=== PATIENT | male | born 1965 | race Caucasian/White ===

== ENCOUNTER 2020-09-28 06:21 | Emergency (ER) | payer BC ==
[2020-09-28 06:35] VITALS: TEMP 101.7
[2020-09-28] MEDS ORDERED: SODIUM CHLORIDE 0.9% 500 ML 500 ML IV ONE (06:48)
[2020-09-28] MEDS ORDERED: KETOROLAC 15 MG/ML 1 ML VIAL IVP STA (06:48)
[2020-09-28] MEDS ORDERED: ACETAMINOPHEN TAB 325 MG TAB PO STA (06:48)
--- NOTE | 2020-09-28 06:52 | ED ---
SOB HPI - General Chief Complaint: Shortness of Breath Stated Complaint: +COVID, RICKIE Time Seen by Provider: 09/28/20 06:26 Source: patient, EMS Mode of arrival: EMS Limitations: no limitations - History of Present Illness Initial Comments: 54-year-old male who is currently covid 19 positive outpatient, with symptoms x 6 days, hx of DMII non-insulin dependent presenting for cc of dyspnea. paitent states he has had cough, fevers, bodyaches, chills for the past 6 days. for the past day he has had increasing dyspnea. He states that he has a home oxygen m onitor that was measuring around 88% at rest thus he called EMS. EMS state he was 92% on their monitor on RA. He states that he feels like he cant expand his lungs like they are tight and restrictive and hurt with a deep breath. Denies crushing chest pain, diaphoresis, jaw or arm pain> Denies abdominal pain, vomiting. But admits to nausea, diarrhea. Denies rashes, ear or throat pain. Denies leg swelling, calf pain or hemoptysis. Patient states he has not taken tylenol since 9PM last night. Shannon on arrival is febrile at 101.7F. He states his lips are dry and he believes he is also hydrated, hx of decreased oral intake. Patient has no additional complaints. - Related Data Home Medications Medication Instructions Recorded Confirmed Albuterol Sulfate [Proair Hfa] 1 - 2 puff INHALATION Q6HR PRN 09/28/20 09/28/20 Azithromycin [Zithromax] See Taper PO DAILY 09/28/20 09/28/20 Benzonatate [Tessalon Perles] 100 mg PO TID PRN 09/28/20 09/28/20 Cholecalciferol (Vitamin D3) 4,000 unit PO DAILY 09/28/20 09/28/20 [Vitamin D3 (4,000 Iu)] Dapagliflozin Propanediol [Farxiga] 5 mg PO DAILY 09/28/20 09/28/20 Elderberry Gummies 1 tab PO DAILY 09/28/20 09/28/20 Fluticasone Nasal [place] [Flonase 1 - 2 spray EA NOSTRIL BID 09/28/20 09/28/20 Nasal [place]] Ibuprofen [Motrin] 800 mg PO Q8H PRN 09/28/20 09/28/20 lisinopriL [Zestril] 10 mg PO DAILY 09/28/20 09/28/20 metFORMIN HCL [Glucophage] 500 mg PO BID 09/28/20 09/28/20 Allergies Allergy/AdvReac Type Severity Reaction Status Date / Time Penicillins Allergy Rash/Hives Verified 09/28/20 09:15 Review of Systems ROS Statement: Those systems with pertinent positive or pertinent negative responses have been documented in the HPI. ROS Other: All systems not noted in ROS Statement are negative. Past Medical History Past Medical History: Diabetes Mellitus History of Any Multi-Drug Resistant Organisms: None Reported Past Surgical History: No Surgical Hx Reported Past Psychological History: No Psychological Hx Reported Smoking Status: Never smoker Past Alcohol Use History: Occasional Past Drug Use History: None Reported General Exam - General Exam Comments Initial Comments: General: The patient is awake and alert, in no distress Eye: +3 mm pupils are equal, round and reactive to light, extra-ocular movements are intact. No nystagmus. There is normal conjunctiva bilaterally. No signs of icterus. Ears, nose, mouth and throat: There are moist mucous membranes and no oral lesions. Neck: The neck is supple, there is no tenderness or JVD. Cardiovascular: There is a regular rate and rhythm. No murmur, rub or gallop is appreciated. Respiratory: Lungs are clear to auscultation, respirations are non-labored, breath sounds are equal. No wheezes, stridor, rales, or rhonchi. NO retractions nor abdominal breathing. Gastrointestinal: Soft, non-distended, non-tender abdomen without masses or organomegaly noted. There is no rebound or guarding present. Musculoskeletal: Normal ROM, no tenderness. Strength 5/5. Sensation intact. Radial and DP pulses equal bilaterally 2+. Neurological: A&O x 3. CN II-XII intact grossly, There are no obvious motor or sensory deficits. Coordination appears grossly intact. Speech is normal. Skin: Skin is warm and dry and no rashes or lesions are noted. No LE edema. no calf pain to palpation. Psychiatric: Cooperative, appropriate mood & affect, normal judgment. Limitations: no limitations Course Vital Signs 09/28/20 09/28/20 06:29 06:39 Temperature 101.7 F H Pulse Rate 85 Respiratory 18 19 Rate Blood Pressure 163/95 O2 Sat by Pulse 94 L Oximetry Medical Decision Making - Medical Decision Making 54yo male presenting for cc of covid +, dyspnea. Febrile on arrival.He however appear in no respiratory distress. pt treated symptomatically. he states he began to feel much better. pt given option of monoclonal antibody which he accepted and after infusion and monitoring, pt was discharged, as oxygen levels 94-96% consistently on multiple reevaluation, did not appear distressed and was agreeable/felt safe with discharge/home monitoring. Patient agreeable to discharge, and is aware of return parameters. Dr Phoenix attending agreeable to care plan. - Lab Data Result diagrams: 09/28/20 06:54 09/28/20 06:54 Lab Results 09/28/20 09/28/20 09/28/20 Range/Units 06:54 06:54 06:54 WBC 3.1 L (3.8-10.6) k/uL RBC 5.03 (4.30-5.90) m/uL Hgb 15.5 (13.0-17.5) gm/dL Hct 44.1 (39.0-53.0) % MCV 87.6 (80.0-100.0) fL MCH 30.8 (25.0-35.0) pg MCHC 35.1 (31.0-37.0) g/dL RDW 12.6 (11.5-15.5) % Plt Count 61 L (150-450) k/uL MPV 8.3 Neutrophils % 66 % Lymphocytes % 25 % Monocytes % 8 % Eosinophils % 0 % Basophils % 0 % Neutrophils # 2.0 (1.3-7.7) k/uL Lymphocytes # 0.8 L (1.0-4.8) k/uL Monocytes # 0.2 (0-1.0) k/uL Eosinophils # 0.0 (0-0.7) k/uL Basophils # 0.0 (0-0.2) k/uL Manual Slide Review Performed RBC Morphology Normal PT 9.4 (9.0-12.0) sec INR 0.9 (<1.2) APTT 25.3 (22.0-30.0) sec D-Dimer 0.21 (<0.60) mg/L FEU Sodium 135 L (137-145) mmol/L Potassium 4.3 (3.5-5.1) mmol/L Chloride 102 (98-107) mmol/L Carbon Dioxide 21 L (22-30) mmol/L Anion Gap 12 mmol/L BUN 15 (9-20) mg/dL Creatinine 1.06 (0.66-1.25) mg/dL Est GFR (CKD-EPI)AfAm >90 (>60 ml/min/1.73 sqM) Est GFR (CKD-EPI)NonAf 81 (>60 ml/min/1.73 sqM) Glucose 205 H (74-99) mg/dL POC Glucose (mg/dL) (75-99) mg/dL POC Glu Vegetable Sorter ID Plasma Lactic Acid Stevie (0.7-2.0) mmol/L Calcium 8.5 (8.4-10.2) mg/dL Magnesium 2.0 (1.6-2.3) mg/dL Ferritin 437.8 H (22.0-322.0) ng/mL Total Bilirubin 0.6 (0.2-1.3) mg/dL AST 36 (17-59) U/L ALT 36 (4-49) U/L Alkaline Phosphatase 93 (38-126) U/L Lactate Dehydrogenase 512 (313-618) U/L Troponin I (0.000-0.034) ng/mL C-Reactive Protein 65.3 H (<10.0) mg/L Total Protein 6.7 (6.3-8.2) g/dL Albumin 4.0 (3.5-5.0) g/dL Coronavirus (PCR) (Not Detectd) 09/28/20 09/28/20 09/28/20 Range/Units 06:54 06:54 07:53 WBC (3.8-10.6) k/uL RBC (4.30-5.90) m/uL Hgb (13.0-17.5) gm/dL Hct (39.0-53.0) % MCV (80.0-100.0) fL MCH (25.0-35.0) pg MCHC (31.0-37.0) g/dL RDW (11.5-15.5) % Plt Count (150-450) k/uL MPV Neutrophils % % Lymphocytes % % Monocytes % % Eosinophils % % Basophils % % Neutrophils # (1.3-7.7) k/uL Lymphocytes # (1.0-4.8) k/uL Monocytes # (0-1.0) k/uL Eosinophils # (0-0.7) k/uL Basophils # (0-0.2) k/uL Manual Slide Review RBC Morphology PT (9.0-12.0) sec INR (<1.2) APTT (22.0-30.0) sec D-Dimer (<0.60) mg/L FEU Sodium (137-145) mmol/L Potassium (3.5-5.1) mmol/L Chloride (98-107) mmol/L Carbon Dioxide (22-30) mmol/L Anion Gap mmol/L BUN (9-20) mg/dL Creatinine (0.66-1.25) mg/dL Est GFR (CKD-EPI)AfAm (>60 ml/min/1.73 sqM) Est GFR (CKD-EPI)NonAf (>60 ml/min/1.73 sqM) Glucose (74-99) mg/dL POC Glucose (mg/dL) (75-99) mg/dL POC Glu Vegetable Sorter ID Plasma Lactic Acid Stevie 0.7 (0.7-2.0) mmol/L Calcium (8.4-10.2) mg/dL Magnesium (1.6-2.3) mg/dL Ferritin (22.0-322.0) ng/mL Total Bilirubin (0.2-1.3) mg/dL AST (17-59) U/L ALT (4-49) U/L Alkaline Phosphatase (38-126) U/L Lactate Dehydrogenase (313-618) U/L Troponin I <0.012 (0.000-0.034) ng/mL C-Reactive Protein (<10.0) mg/L Total Protein (6.3-8.2) g/dL Albumin (3.5-5.0) g/dL Coronavirus (PCR) Detected A (Not Detectd) 09/28/20 Range/Units 10:14 WBC (3.8-10.6) k/uL RBC (4.30-5.90) m/uL Hgb (13.0-17.5) gm/dL Hct (39.0-53.0) % MCV (80.0-100.0) fL MCH (25.0-35.0) pg MCHC (31.0-37.0) g/dL RDW (11.5-15.5) % Plt Count (150-450) k/uL MPV Neutrophils % % Lymphocytes % % Monocytes % % Eosinophils % % Basophils % % Neutrophils # (1.3-7.7) k/uL Lymphocytes # (1.0-4.8) k/uL Monocytes # (0-1.0) k/uL Eosinophils # (0-0.7) k/uL Basophils # (0-0.2) k/uL Manual Slide Review RBC Morphology PT (9.0-12.0) sec INR (<1.2) APTT (22.0-30.0) sec D-Dimer (<0.60) mg/L FEU Sodium (137-145) mmol/L Potassium (3.5-5.1) mmol/L Chloride (98-107) mmol/L Carbon Dioxide (22-30) mmol/L Anion Gap mmol/L BUN (9-20) mg/dL Creatinine (0.66-1.25) mg/dL Est GFR (CKD-EPI)AfAm (>60 ml/min/1.73 sqM) Est GFR (CKD-EPI)NonAf (>60 ml/min/1.73 sqM) Glucose (74-99) mg/dL POC Glucose (mg/dL) 176 H (75-99) mg/dL POC Glu Vegetable Sorter ID Svacha, II, Doyle Plasma Lactic Acid Stevie (0.7-2.0) mmol/L Calcium (8.4-10.2) mg/dL Magnesium (1.6-2.3) mg/dL Ferritin (22.0-322.0) ng/mL Total Bilirubin (0.2-1.3) mg/dL AST (17-59) U/L ALT (4-49) U/L Alkaline Phosphatase (38-126) U/L Lactate Dehydrogenase (313-618) U/L Troponin I (0.000-0.034) ng/mL C-Reactive Protein (<10.0) mg/L Total Protein (6.3-8.2) g/dL Albumin (3.5-5.0) g/dL Coronavirus (PCR) (Not Detectd) Disposition Clinical Impression: Thrombopenia, Leukopenia, Pneumonia due to COVID-19 virus, Fever, Cough, Dyspnea Disposition: HOME SELF-CARE Condition: Good Instructions (If sedation given, give patient instructions): Coronavirus Disease 2019 (COVID-19) Additional Instructions: Please use medication as discussed. Please follow-up with family doctor in the next 2 days. Return for worsening dyspnea or low oxygen levels as discussed. Please return to emergency room if the symptoms increase or worsen or for any other concerns. Is patient prescribed a controlled substance at d/c from ED?: No Referrals: Isabel Palma DO [Primary Care Provider] - 1-2 days Time of Disposition: 09:59
[2020-09-28] MEDS ORDERED: SODIUM CHLORIDE 0.9% 1,000 ML IV SCH (07:00)
[2020-09-28 07:29] LABS: D-Dimer 0.21 mg/L FEU (<0.60); INR 0.9 (<1.2); Partial Thromboplastin Time 25.3 sec (22.0-30.0); Prothrombin Time 9.4 sec (9.0-12.0)
[2020-09-28 07:32] LABS: ALT 36 U/L (4-49); AST 36 U/L (17-59); African American GFR (CKD) >90 (>60 ml/min/1.73 sqM); Alkaline Phosphatase 93 U/L (38-126); Anion Gap 12 mmol/L; Blood Urea Nitrogen 15 mg/dL (9-20); C Reactive Protein 65.3 mg/L (<10.0); Calcium 8.5 mg/dL (8.4-10.2); Carbon Dioxide 21 mmol/L (22-30); Chloride 102 mmol/L (98-107); Glucose 205 mg/dL (74-99); LDH 512 U/L (313-618); Non-African American GFR(CKD) 81 (>60 ml/min/1.73 sqM); Potassium 4.3 mmol/L (3.5-5.1); Sodium 135 mmol/L (137-145); Total Bilirubin 0.6 mg/dL (0.2-1.3); Total Protein 6.7 g/dL (6.3-8.2)
[2020-09-28 07:36] LABS: Basophils % (A) 0 %; Eosinophils % (A) 0 %; HCT 44.1 % (39.0-53.0); HGB 15.5 gm/dL (13.0-17.5); Lymphocytes # (A) 0.8 k/uL (1.0-4.8); Lymphocytes % (A) 25 %; MCH 30.8 pg (25.0-35.0); MCHC 35.1 g/dL (31.0-37.0); MCV 87.6 fL (80.0-100.0); Mean Platelet Volume 8.3; Monocytes # (A) 0.2 k/uL (0-1.0); Monocytes % (A) 8 %; Neutrophils % (A) 66 %; RBC 5.03 m/uL (4.30-5.90); RDW 12.6 % (11.5-15.5); WBC 3.1 k/uL (3.8-10.6)
--- NOTE | 2020-09-28 07:53 | XR ---
EXAMINATION TYPE: XR chest 1V portable DATE OF EXAM: 09/28/2020 Comparison: None Clinical History: 54-year-old male shortness of breath, Suspected COVID-19 pneumonia Findings: Heart normal size. Aorta and pulmonary vasculature within normal limits. Subtle patchy interstitial i nfiltrates bilaterally. No pleural effusion. Impression: Subtle patchy bilateral interstitial infiltrates. Findings can be seen with early COVID pneumonia.
[2020-09-28 08:14] LABS: Platelet Count 61 k/uL (150-450)
[2020-09-28] MEDS ORDERED: INSULIN REGULAR 100 UNIT/ML VIAL SQ ONE (09:11)
[2020-09-28] MEDS ORDERED: BAMLANIVIMAB (EUA) 700 MG, ETESEVIMAB (EUA) 1,400 MG in SODIUM CHLORIDE 0.9% 50 ML IVPB ONE (09:40)
[2020-09-28 10:16] LABS: Glucose,Whole Blood 176 mg/dL (75-99)
[2020-09-28 11:35] LABS: Ferritin 437.8 ng/mL (22.0-322.0)
[2020-09-28 11:46] VITALS: BP 114/67; PULSE 72; RESP 18
== END 2020-09-28 11:47 | disposition home or self-care (01) ==
LOC: EC 06:21
DX: U07.1 COVID-19 (principal); J12.82 Pneumonia due to coronavirus disease 2019; D69.6 Thrombocytopenia, unspecified; D72.819 Decreased white blood cell count, unspecified; E11.9 Type 2 diabetes mellitus without complications; Z88.0 Allergy status to penicillin
CPT/HCPCS: 36415; 93005; 85379; 80053; 82728; 83605; 83615; 83735; 84484; 85025; 85610; 85730; 86140; 84145; 87635; 71045; 99285; 96365; 96375; 96361 ×3; J1885